=== PATIENT | female | born 1960 | race Caucasian/White ===

== ENCOUNTER 2022-08-05 13:05 | Outpatient (CLI) | payer OTHER, SELFPAY ==
--- NOTE | 2022-08-05 13:14 | MM_ITS ---
WS: [id number] BILATERAL 3D TOMOSYNTHESIS DIGITAL SCREENING MAMMOGRAPHY WITH CAD CLINICAL INFORMATION: SCREENING HISTORY: Screening mammogram. LEFT breast pain and soreness. Small amount of dark nipple discharge. COMPARISON: 2017 and August 2018 TECHNIQUE: Bilateral CC and MLO views. FINDINGS: The breasts are composed of heterogeneous fibroglandular density tissue, which can limit the detectio n of small underlying mass lesions. Incidental punctate and lucent centered calcifications. No suspic ious mass, asymmetry, calcifications, or architectural distortion. No evidence of malignancy. MM/[place] [id number] IMPRESSION: BI-RADS: 2-Benign FOLLOW UP: 1 Year Follow-up Recommend return to annual screening mammography.
== END 2022-08-05 13:06 | disposition home or self-care (01) ==
LOC: RAD 13:07
PROVIDERS: PCP Nurse Practitioner Family; Visit Provider Nurse Practitioner Family
DX: Z12.31 Encounter for screening mammogram for malignant neoplasm of breast (principal)
CPT/HCPCS: 77063; 77067

== ENCOUNTER 2023-12-19 11:04 | Outpatient (CLI) | payer OTHER, SELFPAY ==
--- NOTE | 2023-12-19 11:11 | MM_ITS ---
WS: [id number] BILATERAL 3D TOMOSYNTHESIS DIGITAL SCREENING MAMMOGRAPHY WITH CAD CLINICAL INFORMATION: SCREENING HISTORY: Screening mammogram. No current complaints. COMPARISON: 2021 TECHNIQUE: Bilateral CC and MLO views. FINDINGS: The breasts are composed of heterogeneous fibroglandular density tissue, which can limit the detectio n of small underlying mass lesions. No suspicious mass, asymmetry, calcifications, or architectural d istortion. No evidence of malignancy. Incidental punctate and lucent centered calcifications. IMPRESSION: MM/[place] [id number] BI-RADS: 2-Benign FOLLOW UP: 1 Year Follow-up Recommend return to annual screening mammography.
== END 2023-12-19 11:05 | disposition home or self-care (01) ==
PROVIDERS: PCP Nurse Practitioner Family; Visit Provider Nurse Practitioner Family
DX: Z12.31 Encounter for screening mammogram for malignant neoplasm of breast (principal)
CPT/HCPCS: 77063; 77067

== ENCOUNTER 2024-05-29 09:56 | Outpatient (CLI) | payer OTHER, SELFPAY ==
--- NOTE | 2024-05-29 10:02 | XR_ITS ---
WS: [id number] Exam: XR shoulder RT min 2V* [id number] Date/Time of Exam: 05/29/2024 10:08 AM Reason For Exam: PAIN IN R SHOULDER/STIFFNESS No fracture or dislocation. Moderate degenerative change at the AC joint. Mild glenohumeral joint DJD . Normal soft tissues. XR/XR shoulder RT min 2V* [id number] IMPRESSION: 1. Degenerative changes. No fracture or other significant finding.
== END 2024-05-29 09:57 | disposition home or self-care (01) ==
LOC: RAD 09:58
PROVIDERS: PCP Nurse Practitioner Family; Visit Provider Nurse Practitioner Family
DX: M19.011 Primary osteoarthritis, right shoulder (principal)
CPT/HCPCS: 73030

== ENCOUNTER → 2024-06-15 07:50 | Outpatient (BNVA) | payer OTHER, SELFPAY | PROVIDERS: PCP Nurse Practitioner Family; Visit Provider Physician Assistant | DX: M25.511 Pain in right shoulder (principal); M75.41 Impingement syndrome of right shoulder; R03.0 Elevated blood-pressure reading, without diagnosis of hypertension | CPT/HCPCS: 73030 ==

== ENCOUNTER 2024-06-22 15:47 | Outpatient (CLI) | payer OTHER, SELFPAY ==
--- NOTE | 2024-06-22 15:52 | MR_ITS ---
WS: [id number] MRI RIGHT SHOULDER HISTORY: SHOULDER PAIN COMPARISON: Radiograph 06/15/2024 TECHNIQUE: Multiplanar sequences of the shoulder joint are submitted. Moderate AC joint arthritis. Narrowing of the joint space and small osteophytes. Small amount of flui d in the subacromial bursa. Moderate subacromial impingement by 5 mm osteophyte. Normal position of t he biceps tendon in the bicipital groove. No os acromion. Marked tendinopathy and thickening of the distal supraspinatus tendon. There is a tiny focal fluid co llection at the site of the subacromial impingement which could be a focal tear from the bursal surfa ce. Normal subscapularis tendon. There is fluid in the subscapularis recess. Very mild atrophy of the supraspinatus muscle. Mild narrowing of the glenohumeral joint. Marrow edema in the posterior lateral humeral head. Avulsio n of the anterior labrum. MR/MR shoulder RT wo con* [id number] IMPRESSION: 1. Moderate AC joint arthritis with encroachment upon the supraspinatus muscle and tendon. 2. Moderate subacromial impingement upon the distal supraspinatus tendon. 3. Marked tendinopathy with thickening of the distal supraspinatus tendon but no full-thickness tear. Tiny bursal surface tear is suspected at the site of th e subacromial impingement. 4. Mild supraspinatus muscle atrophy. 5. Anterior labral tear.
== END 2024-06-22 15:48 | disposition home or self-care (01) ==
LOC: RAD 15:47
PROVIDERS: PCP Nurse Practitioner Family; Visit Provider Nurse Practitioner Family
DX: M19.011 Primary osteoarthritis, right shoulder (principal); M75.41 Impingement syndrome of right shoulder; M75.91 Shoulder lesion, unspecified, right shoulder; S43.431A Superior glenoid labrum lesion of right shoulder, initial encounter; X58.XXXA Exposure to other specified factors, initial encounter
CPT/HCPCS: 73221

== ENCOUNTER 2024-10-18 17:13 | Observation (INO) | payer MEDICARE, BC, SELFPAY ==
--- NOTE | 2024-10-17 11:13 | ANES.PREANE2 ---
Pre-Anesthetic Assessment Height/Weight: Height 5 ft 8 in Preop Diagnosis: Rotator cuff tear Operation Date: 10/18/24 09:20 Proposed Procedures p shoulder diagnostic and surgical arthroscopy(Right) - Lazarus Matias DO s AC Joint Resection(Right) - Lazarus OlsonattDO s Subacromial Decompression(Right) - Lazarus LenoirDO s rotator cuff debridement versus repair(Right) - Lazarus Polly DO s possible biceps tenotomy versus tenodesis(Right) - Lazarus Lenoir, DO s possible labral repair(Right) - Lazarus Polly, DO Was Beta Jeaneth taken within 24 hours: N/A Was Clonidine taken within 24 hours: N/A Social No alcohol and No tobacco Exam alert, oriented x 3, clear to auscultation bilaterally and regular rate & rhythm Airway Submandibular: within normal limits Cervical ROM: within normal limits Mallampati: Class III Dentition: full Anesthetic Plan ASA status: 2 Anesthesia: General and Regional (specify below) Other: No prior issues with anesthesia NPO since yesterday evening Patient has alpha gal, anesthesia team aware History of hypertension on amlodipine Denies any pulmonary issues Plan for general anesthetic with preop nerve block Medications/Allergies Home Medications ?Medication ?Instructions ?Recorded ?Confirmed ?Last Taken ?Type amlodipine 2.5 mg tablet 2.5 mg PO BID 06/15/24 10/15/24 10/18/24 History escitalopram oxalate 20 mg tablet 20 mg PO DAILY 10/15/24 10/15/24 10/17/24 History (Lexapro) Allergies Allergy/AdvReac Type Severity Reaction Status Date / Time Alpha-Gal Allergy ADR-Gastrointestinal Verified 10/18/24 07:06 (Wczojlvwx-Ehaby-3,3-Gala Upset [facility] Anesthesia Social History Smoking and tobacco/nicotine status: never used tobacco/nicotine Data Anesthesia Cardiac Studies: No Data to Display
[2024-10-18] VITALS (37 sets, daily range): BP systolic 103–165; BP diastolic 50–88; PULSE 70–104; RESP 14–28; TEMP 36.1–36.4; O2SAT 88–98; BMI 35.7; BMI 37.5
[2024-10-18] MEDS: sodium chloride 0.9% 1,000 ML 30 ML IV (07:10)
[2024-10-18] MEDS: acetaminophen 1,000 MG/100 ML PIGGYBACK 400 MG IV (07:10)
[2024-10-18] MEDS: ketorolac 30 mg/mL INJ IVP (07:11)
--- NOTE | 2024-10-18 07:22 | W.PM.OPSFHP ---
Same Day Surgery H&P Indication for Procedure/HPI DATE OF PROCEDURE: October 18, 2024 CHIEF COMPLAINT/INDICATIONFOR SURGICAL PROCEDURE: Right shoulder AC joint arthritis, rotator cuff impingement, biceps tendinitis, labral tear, rotator cuff tear PREOP DIAGNOSIS: Right shoulder AC joint arthritis, rotator cuff impingement, biceps tendini PLANNED PROCEDURE: Operation Date: 10/18/24 08:30 Proposed Procedures p shoulder diagnostic and surgical arthroscopy(Right) - Lazarus Polly, DO s AC Joint Resection(Right) - Lazarus Izard, DO s Subacromial Decompression(Right) - Lazarus Polly, DO s rotator cuff debridement versus repair(Right) - Lazarus Izard, DO s possible biceps tenotomy versus tenodesis(Right) - Lazarus Polly, DO s possible labral repair(Right) - Lazarus Polly, DO Medications/Allergies* Home Medications ?Medication ?Instructions ?Recorded ?Confirmed ?Type amlodipine 2.5 mg tablet 2.5 mg PO BID 06/15/24 10/15/24 History escitalopram oxalate 20 mg tablet 20 mg PO DAILY 10/15/24 10/15/24 History (Lexapro) Allergies/Adverse Reactions Allergy/AdvReac Type Severity Reaction Status Date / Time Alpha-Gal Allergy ADR-Gastrointestinal Verified 10/18/24 07:06 (Uvsifutnv-Pyklg-6,3-Gala Upset Current Medications: Generic Name Dose Route Start Last Admin Trade Name Freq PRN Reason Stop Dose Admin Sodium Chloride 1,000 mls @ 30 mls/hr 10/18/24 07:00 10/18/24 07:10 Sodium Chloride 0.9% IV 10/19/24 06:59 30 mls/hr .Q24H ERNESTINE Administration Pertinent History/Comorbid Conditions* Social History Smoking and tobacco/nicotine status: never used tobacco/nicotine Pertinent Exam Findings alert, oriented x 3, operative site marked and procedure specific exam findings Please refer to detailed orthopedic examination on 06/28/2024 listed below: Right Shoulder Exam: -ROM actively 160 degrees, passively 180 degrees -5/5 strength with ER -4+/5 strength with IR -TTP over bicipital groove, AC joint, anterior shoulder and upper border of trapezious -Jobes test-positive -Speed's Test-positive -O'Briens test-positive -Rodriges impingement-positive Recommendations Surgery/Procedure today Other Plans: Patient is here today for right shoulder diagnostic and surgical arthroscopy with AC joint resection, subacromial decompression, rotator cuff debridement versus repair, possible biceps tenotomy versus tenodesis, possible labral repair. Patient's failed conservative treatment originally was scheduled earlier however due to insurance issues and have to complete bouts of therapy she has underwent a full process at this point in time she is failed conservative treatment and is ready to proceed with surgical intervention she continues to have persistent pain and dysfunction of her right shoulder. We once again reviewed her procedure in detail as far as the ins and outs procedure the risk benefits complication alternatives surgery and through shared decision making patient elects proceed with surgical invention. All questions answered at this time. Will proceed with surgery today. Coding Level of Care Code Acute Code for Matildeg Fwd
--- NOTE | 2024-10-18 08:06 | ANES.PROC ---
Anesthesia Procedures Procedure/Date: 10/18/24 Nerve Block ^: Nerve Block 1: Main Anesthesia: other (100 mcg fentanyl and 2 mg Versed) Time Out Performed: Yes Consent: requested by attending/covering physician and from patient Nerve block location: interscalene Anesthesia monitors applied: pulse oximetry, EKG, BP cuff and oxygen Nerve block position: supine Anesthetic Used: ropivicaine 0.5% Amount of anesthesia used (mL): 30 Ultrasound used to: recognize landmarks Nerve Stimulator Used?: Yes Interscalene/Femoral BLK: other needle (pjunk 4inch) Injection: neg aspiration of heme Patient Tolerated Procedure: well Complications: none Additional Comments: Decadron 4 mg added to block
[2024-10-18] MEDS: ceFAZolin 2,000 MG in sodium chloride 0.9% (plus) 50 ML 100 MG IV (08:09)
[2024-10-18] MEDS: scopolamine 1 mg PATCH 1 PATCH TRANSDERMA (08:13)
[2024-10-18] MEDS: EPINEPHrine 1 mg/mL INJ 2 MG XX (09:29)
--- NOTE | 2024-10-18 10:03 | W.PM.BPON ---
Date of Procedure: [October 18, 2024] Surgeon: [Dr. 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 ]
--- NOTE | 2024-10-18 10:07 | PM.PACU ---
PACU note Narrative: Patient is a 64-year-old female just underwent a right shoulder diagnostic and surgical arthroscopy. Patient transferred to PACU in stable condition. Pain is well controlled. shoulder Dressing on , dry and in place. Patient's operative arm is in a shoulder immobilizer. Patient is awake and alert and able to respond to my questions accordingly. Patient's fingers are warm with good perfusion. Normal cap refill under 2 seconds. Radial pulse 2+. unable to assess further range of motion in arm due to sling. Patient can wiggle fingers. Sensation to hand intact. Exam: awake Disposition: discharged
[2024-10-18] MEDS: ipratropium-albuterol 3 mL Neb INHALATION ×3 (10:51→19:20)
--- NOTE | 2024-10-18 10:51 | PC.NURSE ---
1045 - Patient's 02 sat 88% on 6L NC - Dr. Thomas notified. Orders received for breathing treatment.
--- NOTE | 2024-10-18 13:32 | PM.MISC ---
Miscellaneous Note Purpose of Documentation: Orthopedic note update: Patient unfortunately in PACU during the recovery process continued to struggle with maintaining O2 saturations and requiring oxygen and once it has been removed she would desat. After talking with anesthesia they are recommending observation overnight I did talk with Dr. Stevens who agreed to consult for this patient I put in admission orders from orthopedic standpoint however will defer to the hospitalist team that we will manage her hypoxia patient per their recommendations will have a bed in the ICU this evening and they will work up for hypoxia. Orthopedics will continue to follow appreciate. I updated the patient as well as the family they understand and agree with current plan. All questions answered. Will see and evaluate tomorrow. Plan will be for nonweightbearing to the left upper extremity strict no active range of motion maintain sling at all times. Change dressing as needed. Pain control. Ice as needed. All questions answered at this time.
--- NOTE | 2024-10-18 14:08 | XR_ITS ---
WS: [id number] Exam: XR chest 1V portable [id number] Date/Time of Exam: 10/18/2024 2:12 PM Reason For Exam: new hypoxia No priors. The lungs are clear. Mild plaque atelectasis in the lower lung zones. Moderate elevation of the RIGHT diaphragm. Heart size is normal. The mediastinum is normal in contour. Soft tissue density superimposes the central and RIGHT heart that could represent a hiatal hernia. Bony structures are intact. Recommendations: A nonemergent detailed PA and lateral chest x-ray might be considered for follow-up. XR/XR chest 1V portable [id number] IMPRESSION: 1. Moderate elevation of the RIGHT diaphragm. No acute finding. 2. Soft tissue density superimposing the central and RIGHT heart that may repre sent a large hiatal hernia.
--- NOTE | 2024-10-18 14:11 | PM.CONSULT ---
Providers/Reason For Consult Consulting Physician/Specialty*: Cary Infante MD/ Hospitalist Reason for Consult*: hypoxia Requesting Physician: Dr. Matias/ Dr. Thomas Attending Physician: Lazarus Matias DO Primary Care Provider: MISSY Groves History of Present Illness History of Present Illness Neva Tan is a 64 year old female with PMH HTN, who presented today for an elective shoulder surgery. She underwent shoulder decompressive surgery earlier today with interscapular nerve block. Post operatively. she was noted to be hypoxic with 02 sat in 80s on RA. With 4lpm supplemental 02, 02 sat currently at 94%. She denies any chest pain. Denies any dyspnea. 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 She does not typically use 02 at home. Non smoker. No known h/o COPD or asthma. Approximately one month ago, she was diagnosed with an episode of ? bronchitis vs pneumonis. States that she was noted to have wheezing on her right chest and needed 5 days of abx and steroids. She was also prescribed an albuterol inhlaer by her PCP for prn use. No recent sick contacts. Denies any chest pain. No formal diagnosis of sleep apnea, but she suspects this as she snores. denies any known cardiac issues. Review of Systems General: Reports: 10 or more systems reviewed and unremarkable except in HPI and below Const: Denies: fever(s), chills or body aches Eyes: Denies: change in vision, blurry vision or photophobia ENMT: Reports: hoarseness; Denies: throat pain, enlarged tonsils, odynophagia or nasal congestion Card: Denies: chest pain, palpitations, irregular heart rhythm, edema, swelling of feet/ankles, lightheadedness, pre-syncope, dyspnea on exertion or orthopnea Resp: Denies: dyspnea, productive cough, non-productive cough, wheezing, stridor, pain on inspiration, change in phlegm color, hemoptysis or chest congestion GI: Denies: abdominal pain, nausea, vomiting, hematemesis, coffee ground emesis, dysphagia, heartburn, diarrhea, constipation, GI cramping, change in stool character, hematochezia or melena : Denies: flank pain, difficulty voiding, dysuria, urinary frequency, urinary urgency, urinary hesitancy or hematuria Musc: Denies: neck pain, back pain, extremity pain, joint swelling, joint warmth or deformity Neuro: Denies: headache(s), numbness in extremities, weakness in extremities, sensory changes, difficulty walking, frequent falls, dizziness, vertigo, behavioral changes, Slurred speech present or seizure-like activity Psych: Denies: anxiety, depression, suicidal ideation or homicidal ideation Endo: Denies: polyuria, polydipsia, tired all the time, cold intolerance or hot flashes Ashu/Lymph: Denies: easy bruising or easy bleeding Medications/Allergies Home Medications ?Medication ?Instructions ?Recorded ?Confirmed ?Last Taken ?Type amlodipine 2.5 mg tablet 2.5 mg PO BID 06/15/24 10/15/24 10/18/24 History escitalopram oxalate 20 mg tablet 20 mg PO DAILY 10/15/24 10/15/24 10/17/24 History (Lexapro) hydrocodone 7.5 mg-acetaminophen 1 tab PO Q6H PRN pain #20 tabs 10/18/24 Unknown Rx 325 mg tablet ondansetron 4 mg disintegrating 4 mg PO Q8H PRN nausea and 10/18/24 Unknown Rx tablet vomiting 3 days #9 tabs Allergies Allergy/AdvReac Type Severity Reaction Status Date / Time Alpha-Gal Allergy ADR-Gastrointestinal Verified 10/18/24 07:06 (Fefuzpyll-Cjvfe-8,3-Gala Upset Current Medications Generic Name Dose Route Start Last Admin Trade Name Freq PRN Reason Stop Dose Admin Sodium Chloride 1,000 mls @ 30 mls/hr 10/18/24 07:00 10/18/24 07:10 Sodium Chloride 0.9% IV 10/19/24 06:59 30 mls/hr .Q24H ERNESTINE Administration PFSH Acute PFSH: Social History Smoking and tobacco/nicotine status: never used tobacco/nicotine Vitals/I&O/Wt Last Vital Signs Temp 97.4 F L 10/18/24 11:55 Pulse 92 10/18/24 13:27 Resp 18 10/18/24 13:27 BP 117/70 10/18/24 13:27 Pulse Ox 89 L 10/18/24 13:27 O2 Del Method Nasal Cannula 10/18/24 13:27 O2 Flow Rate 4 10/18/24 13:27 10/17/24 10/18/24 10/18/24 22:59 06:59 14:59 Intake Total 150 / 150 Output Total 2 / 2 Balance 148 / 148 Weight last 48 hrs Weight 106.594 kg Physical Exam Narrative: General: No acute distress, AO x3 HEENT: PERRLA, pupils bilaterally equal and reactive, pallors not present Chest: Wheezing to auscultation B/L more pronounced on the right side CVS: S1-S2 regular, no murmurs, no tachycardia, no gallops, no rubs Abdomen: Soft, nontender, no organomegaly, bowel sounds present Neuro: No focal deficits, no facial deformity, AO x3, power 5/5 in all limbs Extremities: Right arm with orthopedic sling in plac e Data 10/18/24 16:55 10/18/24 16:55 A&P Assessment and plan (1) Hypoxia: (2) Reactive airway disease: Plan 64F without known lung or cardiac abnormalities underwent elevtive shoulder surgery, post op noted to have hypoxia with 02 sat in the 80s, needing 4lpm supplemental 02. There is B/L wheezing on exam, more pronounced on the right side Differentials include reactive airway disease, viral bronchitis, possible asthma or COPD Check CXR now Obtain CBC, CMP, D dimer, Ekg and troponin series now duoneb inhalation q6h scheduled dexamthesone 4mg IVP now Further plan to be dependedn ton results of above testing PDMP PDMP Reviewed: Not Reviewed Coding Level of Care Code Acute Code for Chg Fwd Diagnoses Hypoxia R09.02 Reactive airway disease J45.909
--- NOTE | 2024-10-18 14:37 | SUR.PHASEII ---
patient received from pacu with nasal cannula on 4L. o2 sat between 88-91%. patient was instructed on how to use an incentive spirometer. patient completed 3 rounds of the incentive spirometer. o2 sat steady at 91% with 4L. anesthesia monitoring and recommended consult with surgeon and hospitalist about being admitted. cxr, ekg and duoneb ordered and completed in ops.
--- NOTE | 2024-10-18 14:41 | ECG_ITS ---
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 Measurements Intervals [place] Rate: 86 P: 19 IA: 185 QRS: -22 QRSD: 106 T: 5 QT: 370 QTc: 443 Interpretive Statements SINUS RHYTHM BORDERLINE LEFT AXIS DEVIATION [QRS AXIS < -20] MINIMAL VOLTAGE CRITERIA FOR LVH, CONSIDER NORMAL VARIANT [MEETS CRITERIA IN ONE OF: R(aVL), S(V1), R(V5), R(V5/V6)+S(V1)] NONSPECIFIC T-WAVE ABNORMALITY No previous ECG available for comparison Electronically Signed On 10-18-2024 17:49:57 EXAMINATION SCORER by Darell Hill M.D. [email or web address]
--- NOTE | 2024-10-18 14:55 | SUR.PHASEII ---
Received report from Madina DAWN taking care of patient, assumed care at this time. Patient is being admitted overnight due to oxygen levels dropping below acceptable level. Patient is being held in OPS awaiting a room assignment.
--- NOTE | 2024-10-18 15:03 | ANE.PACU2 ---
Inpatient post-anesthesia follow up: Airway intact: Yes Vital signs: Temperature 97.4 F Pulse Rate 88 Respiratory Rate 14 Blood Pressure 117/70 Pulse Oximetry 95 Oxygen Delivery Me thod Nasal Cannula Oxygen Flow Rate 4 Fraction of Inspir ed Oxygen Hydration adequate: Yes Nausea and vomiting: No Pain level: 1 Mental status: Baseline Additional Comments: Patient experiencing hypoxemia postop. Requiring 3-4 L O2 supplementation to maintain SpO2 greater than 90%. DuoNebs given. Incentive spirometry has been performed. Patient was watched approximately 2 hours in recovery prior to deciding for admission. Chest x-ray showing a right elevated hemidiaphragm which is an expected finding following interscalene nerve block. Mild atelectasis noted. Surgeon is aware and plans for admission for further observation
--- NOTE | 2024-10-18 15:46 | SUR.PHASEII ---
Patient received a breathing treatment from RT staff and her O2 sats having improved some.
--- NOTE | 2024-10-18 16:34 | ECG_ITS ---
[facility] [employer] 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
--- NOTE | 2024-10-18 16:38 | ECG_ITS ---
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
--- NOTE | 2024-10-18 16:38 | ECG_ITS ---
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
[2024-10-18 17:33] LABS: Basophils % 0.1 %; Eosinophils % 0.3 %; Hematocrit 38.2 % (36-47); Lymphocytes # 0.6 10^3/uL (0.8-4.8); Lymphocytes % 4.4 %; Mean Corpuscular HGB Conc 30.6 g/dL (30-55); Mean Corpuscular Hemoglobin 26.5 pg (27-33); Mean Corpuscular Volume 86.4 fl (85-98); Mean Platelet Volume 8.8 fL (7.4-10.4); Monocytes # 0.2 10^3/uL (0.2-0.9); Monocytes % 1.1 %; Neutrophils # 12.67 10^3/uL (1.8-7.7); Neutrophils % 93.4 %; Nucleated Red Blood Cells % 0 %; Platelet Count 354 10^3/cmm (157-399); Red Blood Count 4.42 10^6/uL (3.85-5.65); White Blood Count 13.57 10^3/uL (3.29-11.43)
[2024-10-18 17:46] LABS: D Dimer 0.83 ug/mLFEU (0-0.59)
[2024-10-18 17:49] LABS: Troponin(5th) Baseline < 6 ng/L (0-10)
[2024-10-18 17:57] LABS: Alanine Aminotransferase 24 U/L (0-33); Albumin Level 4.2 g/dL (3.5-5.2); Alkaline Phosphatase 71 U/L (35-105); Aspartate Amino Transferase 23 U/L (0-32); Blood Urea Nitrogen 11 mg/dL (8-23); Calcium 8.6 mg/dL (8.5-10.5); Carbon Dioxide 20 mmol/L (22-29); Chloride 104 mmol/L (98-107); Creatinine Clr Calc Pharmacy 89.6236; Globulin 2.3 g/dL (1.3-4.6); Glucose 228 mg/dL (65-115); NT Pro B Type Natriuretic Pept < 36 pg/mL (0-125); Osmolality Calculated 295 mOsm/kg (285-295); Sodium 139 mmol/L (136-145); Total Bilirubin 0.2 mg/dL (0.15-1.2); Total Protein 6.5 g/dL (6.6-8.7)
--- NOTE | 2024-10-18 18:00 | P.OP_ITS ---
Operative Report Date of procedure: October 18, 2024 Surgeon: Lazarus Matias DO Data Base Administrator: Dav Matais PA-C: PA was necessary for assistance in this case with shoulder positioning to execute the procedure, assistance with instrumentation, as well as implant fixation when necessary, assist with wound closure and dressing application. 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 Procedure done: Right?shoulder?diagnostic and surgical arthroscopy with arthroscopic rotator cuff repair(small) Right?shoulder?diagnostic and surgical arthroscopy biceps tenodesis Right?shoulder?diagnostic and surgical arthroscopy labral debridement Right?shoulder?diagnostic and surgical arthroscopy acromioclavicular joint resection Right?shoulder?diagnostic and surgical arthroscopy subacromial decompression (acromioplasty and bursectomy) Right shoulder diagnostic and surgical arthroscopy with glenohumeral joint chondroplasty Surgeon: Lazarus Matias DO Estimated blood loss: 10mL IV fluids: See anesthesia record Implants: Bicep tenodesis loop and tack kit Arthrex Arthrex 4.75 swivel lock Arthrex scorpion and suture tape Complications: None Condition: stable Disposition: same day Brief History: Patient been seen and worked up in the outpatient setting for?right?shoulder?p ain.? Pt had an MRI which showed findings below.? Patient's failed conservative treatment and has weakness.? We talked about treatment options far as nonoperative and operative intervention..? We talked about risk benefits complication alternatives surgical nonsurgical treatment options.? Understanding risk of surgery pt agrees to proceed with surgical intervention.? All questions have been answered at this time.? Patient elects proceed with surgery and consent obtained in preop for right shoulder diagnostic and surgical arthroscopy with AC joint resection, subacromial decompression, rotator cuff debridement versus repair, possible biceps tenotomy versus tenodesis, possible labral repair. MR/MR shoulder RT wo con* [id number] IMPRESSION: 1. Moderate AC joint arthritis with encroachment upon the supraspinatus muscle and tendon. 2. Moderate subacromial impingement upon the distal supraspinatus tendon. 3. Marked tendinopathy with thickening of the distal supraspinatus tendon but no full-thickness tear. Tiny bursal surface tear is suspected at the site of the subacromial impingement. 4. Mild supraspinatus muscle atrophy. 5. Anterior labral tear. Procedure: Patient seen evaluated in the preoperative holding area.? Consent reviewed and signed with patient.? Once again reviewed patient's MRI results as well as? planned surgical intervention.? Correct extremity marked.? Patient seen evaluated by anesthesia department received regional anesthesia.? Once ready for surgery was taken back to the operative suite.? Patient then subsequently underwent anesthesia per the anesthesia department was transported onto the OR table.? Patient was then placed into a lateral decubitus position with a beanbag and was appropriately secured to the bed.? All bony prominences well-padded.? Patient then had the?right?upper extremity was then prepped and draped in standard orthopedic fashion.? Patient received appropriate preoperative antibiotics.? Final timeout performed. The?right?upper extremity was then held in hanging from traction utilizing sterile technique.? Next started with standard diagnostic and surgical arthroscopy with posterior portal position introduced arthroscope into the glenohumeral joint.? Visualized the glenohumeral joint I then introduced a spinal needle within the rotator cuff interval to confirm appropriate anterior portal placement.? Once this was confirmed I then made my small incision and then introduced my arthroscopic shaver into the glenohumeral joint.? After flushing the joint fluid, was clearly evident patient had biceps tendon tearing as well as Superior labral tear. Patient had appreciable unstable biceps anchor most pronounced in the superior labrum. Given there appears to be healthy intra-articular tendon plan was for an intra-articular biceps tenodesis at the superior portion as it enters the intertubercular groove. Thermal wand introduced into the rotator interval. I then release of the rotator interval to have appropriate visualization and the ability to perform biceps tenodesis. At this point I established a purple passport cannula which was introduced. Next I performed an Arthrex loop and tap biceps tenodesis. Passer was then made around the tendon luggage tag stitch around and then thru the tendon and around twice I then utilized a thermal wand to release the biceps tendon at the anchor to perform with tenotomy. I then loaded with suture onto an Arthrex 4.75 swivel lock suture anchor. A punch was then placed in appropriate position at the entry point into the intertubercular groove just superior to the subscapularis tendon. Punch was then introduced to the appropriate depth. The suture loaded on the swivel lock was then advanced held under appropriate tension and shoulder lock anchor was then advanced and had excellent fixation. Excess suture was then cut biceps tenodesis was complete. I then utilized a thermal wand to seal the edges of the superior labrum. Next I evaluated the subscapularis tendon which was intact and no evidence of tear. ?Next there was significant labral tearing at biceps anchor and circumfere ntial.? ? I then subsequently utilized a a arthroscopic shaver and thermal wand to perform a labral debridement.? This point time I then visualized the glenohumeral joint.? The glenohumeral joint was found to have grade 2-3 chondromalacia throughout.? This point in time there was some unstable articular cartilage in the glenohumeral joint utilized up arthroscopic shaver and thermal wand to perform glenohumeral joint chondroplasty to stable articular tissue. Axillary pouch was free of loose bodies from viewing the posterior portal.? Next a visualized the rotator cuff superiorly and there was found to be a small undersurface tearing of the supraspinatus tendon.? I utilized a spinal needle to jose this location.?? This completed my work within the glenohumeral joint all fluid was suctioned free of the joint.? ?Next I reintroduced the arthroscope posteriorly.? And went to the subacromial space.? I established my lateral working portal at the site of which my spinal needle was marking of the rotator cuff tear.? Thermal wand was then introduced laterally and then I subsequently performed extensive bursectomy of the subacromial space.? Patient had a large anterior bone spur.? At this point time I proceeded with my AC joint resection thermal wand was used and track to the anterior edge of the acromion and then tracked all the way to the AC joint.? Once identified the AC joint this was very arthritic in nature.? Thermal wand was placed anteriorly to establish appropriate plane for AC joint resection.? Once appropriate margins and anterior inferior and anterior capsule was released I then introduced arthroscopic shaver and a bur and performed AC joint resection of both the acromion to cope plane at the AC joint and a distal clavicle resection was then performed totaling 1 cm in size and was confirmed.? This completed my AC joint resection and I then introduced the arthroscopic shaver laterally while continuing to view posteriorly.? I then performed an acromioplasty to complete my subacromial decompression prior to fixing the rotator cuff tear.? Next the arthroscopic shaver was then used previous spinal needle spot that is marked the small hole in the rotator cuff this was consistent with a small full- thickness tear.? Given the small size this did not need a medial and lateral row configuration as result my plan was for a horizontal mattress stitch with a single lateral row anchor.? As result I loaded and Arthrex scorpion with fiber tape and subsequently.? A horizontal mattress purchase appropriately spaced to the small tear of the supraspinatus tendon.? At this point in time and then introduced a shaver to debride the rotator cuff footprint and decorticate the footprint in preparation for repair, next I marked by swivel lock position.? Fiber tape was then loaded into a 4.75 swivel lock I then subsequently punched and then subsequently placement 4.75 swivel lock while maintaining appropriate tension and repair of rotator cuff and this was advanced with excellent fixation I then had a final confirmation of appropriate repair of the supraspinatus rotator cuff tendon tear.? Sutures were then cut with an arthroscopic suture cutter and subsequently evaluated the rotator cuff repair.? Repair was found to be satisfactory?shoulder?was taken through range of motion and the repair moved as a unit with no evidence of loss of fixation. ?I then switched the arthroscope to the lateral portal to confirm this tension- free repair.? I took the?shoulder?through range of motion and the rotator cuff repair was stable and moved as a unit. ?Next I then introduced the arthroscopic shaver posteriorly to complete my subacromial decompression appropriate complaining all the way up to the lateral edge of the acromion.? This completed the surgery.? All fluid was suctioned from the?shoulder.? All instruments were removed.? The lateral incision was then closed with nylon stitches.? As well as the portal sites closed with portal nylon stitches.? Xeroform 4 x 4's ABD and tape was then applied to the?right?shoulder?and was placed into a?shoulder?abduction pillow sling for rotator cuff repair.? Patient was then awakened from anesthesia and then taken back to PACU in stable condition.? Patient tolerated procedure without any issues. Disposition: Patient taken back in stable condition recovering well.? Dressings on in place clean dry and intact.? Will be nonweightbearing to the?right?upper extremity.? Follow rotator cuff repair protocol.? Patient to follow-up with me in the office in 2 weeks.? Patient will receive appropriate discharge instruction as well as pain medication postoperatively.? All questions answered.? We will contact the office for any questions or concerns.
[2024-10-18 19:22] LABS: Adenovirus Not Detected (NOT DETECT); Chlamydia Pneumoniae Not Detected (NOT DETECT); Coronavirus 229E,HKU1,NL63,OC4 Not Detected (NOT DETECT); Human Metapneumovirus Not Detected (NOT DETECT); Human Rhinovirus/Enterovirus Not Detected (NOT DETECT); Influenza A Not Detected (NOT DETECT); Influenza A H1 Not Detected (NOT DETECT); Influenza A H1-2009 Not Detected (NOT DETECT); Influenza A H3 Not Detected (NOT DETECT); Influenza B Not Detected (NOT DETECT); Mycoplasma Pneumoniae Not Detected (NOT DETECT); Parainfluenza Virus Type 1 Not Detected (NOT DETECT); Parainfluenza Virus Type 2 Not Detected (NOT DETECT); Parainfluenza Virus Type 3 Not Detected (NOT DETECT); Parainfluenza Virus Type 4 Not Detected (NOT DETECT); Respiratory Syncytial Virus A Not Detected (NOT DETECT); Respiratory Syncytial Virus B Not Detected (NOT DETECT); SARS-COV-2 Not Detected (NOT DETECT)
[2024-10-18 19:33] LABS: ABG PCO2 46.7 mmHg (35-45); ABG PH Result 7.31 (7.35-7.45); Blood Gas Sample Site Brachial, left; Blood Gas Sample Type Arterial; HCO3 ABG 23.4 mmol/L (22-26); Oxygen Device NC; PO2 ABG 88.3 mmHg (80.0-100.0)
[2024-10-18] MEDS: pantoprazole DR 40 mg Tablet PO (19:59)
[2024-10-18] MEDS: amlodipine 5 mg Tablet 2.5 MG PO (19:59)
--- NOTE | 2024-10-18 20:00 | ECG_ITS ---
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: : 1960 Requested By: Cary Infante Order Number: [id number] Reading MD: RADAMES VALLES Measurements Intervals [place] Rate: 91 P: 34 CT: 175 QRS: -17 QRSD: 98 T: 7 QT: 362 QTc: 445 Interpretive Statements SINUS RHYTHM MINIMAL VOLTAGE CRITERIA FOR LVH, CONSIDER NORMAL VARIANT [MEETS CRITERIA IN ONE OF: R(aVL), S(V1), R(V5), R(V5/V6)+S(V1)] NONSPECIFIC ST ELEVATION [0.05+ mV ST ELEVATION] Compared to ECG 10/18/2024 18:06:23 ST (T wave) deviation now present T-wave abnormality no longer present Electronically Signed On 10-23-2024 23:54:06 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
[2024-10-18] MEDS: HYDROcodone-acetaminophen 5-325 mg Tablet PO (20:01)
[2024-10-18] MEDS: dexamethasone 10 mg/mL INJ 6 MG IVP (20:01)
[2024-10-18 20:42] LABS: Troponin 5 2HR Delta 0.00001 ABS# (0-10)
[2024-10-18 23:52] LABS: Troponin 5 6HR Delta 0.00001 ng/L (0-12)
[2024-10-19] VITALS (10 sets, daily range): BP systolic 111–136; BP diastolic 58–72; PULSE 77–93; RESP 15–18; TEMP 36.6–36.9; O2SAT 92–97
[2024-10-19] MEDS: HYDROcodone-acetaminophen 5-325 mg Tablet PO ×2 (00:10→09:29)
[2024-10-19] MEDS: ipratropium-albuterol 3 mL Neb INHALATION ×2 (02:33→08:35)
[2024-10-19] MEDS: escitalopram 10 mg Tablet 20 MG PO (09:27)
[2024-10-19] MEDS: pantoprazole DR 40 mg Tablet PO (09:28)
[2024-10-19] MEDS: amlodipine 5 mg Tablet 2.5 MG PO (09:28)
--- NOTE | 2024-10-19 10:43 | PM.DCS ---
Discharge Providers Date of Admission: 10/18/24 17:13 Date of Discharge: October 19, 2024 Attending Provider at Admission: Cary Infante MD Attending Provider at Discharge: Lazarus Matias, DO Consults: Dr. Infante?hospitalist Primary Care Provider: MISSY Groves Diagnoses at Discharge Discharge Diagnosis (1) Hypoxia: Status: Resolved (2) Reactive airway disease: Status: Acute Reason for Visit Reason for Visit: M75.21 Brief History: Status post right shoulder arthroscopy and having postoperative hypoxia requiring hospitalization Hospital Course Hospital Course Patient is a pleasant 64-year-old female who presented to the outpatient surgery department with plan for a right shoulder diagnostic and surgical arthroscopy. Patient was seen evaluated by anesthesia once cleared for surgery was taken back to the operative suite patient did have a preoperative block to the right upper extremity. Patient then subsequently underwent anesthesia per the anesthesia department once properly anesthetized patient then subsequently underwent the right shoulder arthroscopy procedure refer to operative note for details. Patient underwent procedure as planned without issues or complications taken back to PACU in stable condition unfortunately during her recovery process she continued to be hypoxic and required O2 to maintain appropriate saturations. This point in time the anesthesiologist recommended hospitalization which we then subsequently contacted and consulted the internal medicine department and Dr. Infante was on board and managed medically. Orthopedics and subsequently had patient admitted she was then treated for her hypoxia and supportive care please refer to hospitalist consultation note and daily progress notes for details she was determined on postoperative day 1 to have resolved and was able to ambulate around on room air and maintain her O2 saturations it was determined on postop day 1 she was stable for discharge from orthopedic standpoint as well as internal medicine standpoint. She receive appropriate discharge instructions as well as pain medication postoperatively. She will maintain sling. She maintain appropriate restrictions being nonweightbearing to the right upper extremity and maintain sling. Patient understands agrees to current plan. Questions answered. Will discharge home and will follow-up in 2 weeks. Patient understands agrees to current plan. All questions answered. Physical Exam Narrative: Right shoulder examination: Examination of right shoulder demonstrates dressing on place clean dry intact no evidence of saturation slings on in place patient's block is starting to wear off returning of sensation as well as wiggling her fingers. Right upper extremity warm well-perfused. Discharge Data Studies Completed and Pending Completed Studies During Hospitalization Category Date Time Status CXRP [XR chest 1V portable [id number]] Stat Exams 10/18/24 14:08 Completed Pending at discharge Category Date Time Status ES surgery / GI images Routine Exams 10/18/24 06:35 Taken Radiology Impressions Chest X-Ray 10/18/24 14:08 IMPRESSION: 1. Moderate elevation of the RIGHT diaphragm. No acute finding. 2. Soft tissue density superimposing the central and RIGHT heart that may represent a large hiatal hernia. Laboratory Results WBC 13.57 10^3/uL (3.29-11.43) H 10/18/24 16:55 RBC 4.42 10^6/uL (3.85-5.65) 10/18/24 16:55 Hgb 11.70 g/dL (11.27-16.99) 10/18/24 16:55 Hct 38.2 % (36-47) 10/18/24 16:55 MCV 86.4 fl (85-98) 10/18/24 16:55 MCH 26.5 pg (27-33) L 10/18/24 16:55 MCHC 30.6 g/dL (30-55) 10/18/24 16:55 RDW 15.0 % (12.1-15.1) 10/18/24 16:55 Plt Count 354 10^3/cmm (157-399) 10/18/24 16:55 MPV 8.8 fL (7.4-10.4) 10/18/24 16:55 Neut % (Auto) 93.4 % 10/18/24 16:55 Lymph % (Auto) 4.4 % 10/18/24 16:55 [place] % (Auto) 1.1 % 10/18/24 16:55 Eos % (Auto) 0.3 % 10/18/24 16:55 Baso % (Auto) 0.1 % 10/18/24 16:55 Neut # (Auto) 12.67 10^3/uL (1.8-7.7) H 10/18/24 16:55 Lymph # (Auto) 0.6 10^3/uL (0.8-4.8) L 10/18/24 16:55 [place] # (Auto) 0.2 10^3/uL (0.2-0.9) 10/18/24 16:55 Eos # (Auto) 0.0 10^3/uL (0.0-0.8) 10/18/24 16:55 Baso # (Auto) 0.0 10^3/uL (0.0-0.1) 10/18/24 16:55 Nucleated RBC % (auto) 0 % 10/18/24 16:55 Nucleated RBCs # 0.0 /100WBC 10/18/24 16:55 D-Dimer 0.83 ug/mLFEU (0-0.59) H 10/18/24 16:55 Specimen Type Arterial 10/18/24 19:20 Sample Site Brachial, left 10/18/24 19:20 ABG pH 7.31 (7.35-7.45) L 10/18/24 19:20 ABG pCO2 46.7 mmHg (35-45) H 10/18/24 19:20 ABG pO2 88.3 mmHg (80.0-100.0) 10/18/24 19:20 ABG HCO3 23.4 mmol/L (22-26) 10/18/24 19:20 ABG Base Excess -3.0 mmol/L (-2.0-2.0) L 10/18/24 19:20 Jesse Test N/a 10/18/24 19:20 Hematocrit 37.0 % (37-47) 10/18/24 19:20 O2 Delivery Device Nc 10/18/24 19:20 O2 Liters/Min 3.0 % 10/18/24 19:20 Market Basket Maker ID [email or web address] 10/18/24 19:20 Sodium 139 mmol/L (136-145) 10/18/24 16:55 Potassium 4.0 mmol/L (3.5-5.1) 10/18/24 16:55 Chloride 104 mmol/L (98-107) 10/18/24 16:55 Carbon Dioxide 20 mmol/L (22-29) L 10/18/24 16:55 Anion Gap 19.0 (5-19) 10/18/24 16:55 BUN 11 mg/dL (8-23) 10/18/24 16:55 Creatinine 0.8 mg/dL (0.5-0.9) 10/18/24 16:55 GFR Calculation 72.0 mL/min (90-130) L 10/18/24 16:55 Glucose 228 mg/dL (65-115) H 10/18/24 16:55 Calculated Osmolality 295 mOsm/kg (285-295) 10/18/24 16:55 Calcium 8.6 mg/dL (8.5-10.5) 10/18/24 16:55 Total Bilirubin 0.2 mg/dL (0.15-1.2) 10/18/24 16:55 AST 23 U/L (0-32) 10/18/24 16:55 ALT 24 U/L (0-33) 10/18/24 16:55 Alkaline Phosphatase 71 U/L (35-105) 10/18/24 16:55 Troponin T Baseline < 6 ng/L (0-10) 10/18/24 16:55 Troponin T 120 Minute 6.00 ng/L (0-10) 10/18/24 19:54 Delta Troponin T 0.19124 ABS# (0-10) 10/18/24 19:54 Troponin T Hi Sens 6Hr 6.00 ng/L (0-10) 10/18/24 23:17 Troponin T Hi Sens 6Hr Delta 0.97219 ng/L (0-12) 10/18/24 23:17 NT-Pro-B Natriuret Pep < 36 pg/mL (0-125) 10/18/24 16:55 Total Protein 6.5 g/dL (6.6-8.7) L 10/18/24 16:55 Albumin 4.2 g/dL (3.5-5.2) 10/18/24 16:55 Globulin 2.3 g/dL (1.3-4.6) 10/18/24 16:55 Adenovirus (PCR) Not detected (NOT DETECT) 10/18/24 16:50 C. pneumoniae DNA (PCR) Not detected (NOT DETECT) 10/18/24 16:50 Coronavirus 229E (PCR) Not detected (NOT DETECT) 10/18/24 16:50 Human Metapneumovir PCR Not detected (NOT DETECT) 10/18/24 16:50 Influenza A (H1) PCR Not detected (NOT DETECT) 10/18/24 16:50 Influ A (H1/09) PCR Not detected (NOT DETECT) 10/18/24 16:50 Influenza A (H3) PCR Not detected (NOT DETECT) 10/18/24 16:50 Influenza Type A (PCR) Not detected (NOT DETECT) 10/18/24 16:50 Influenza Type B (PCR) Not detected (NOT DETECT) 10/18/24 16:50 M. pneumoniae (PCR) Not detected (NOT DETECT) 10/18/24 16:50 Parainfluenza 1 (PCR) Not detected (NOT DETECT) 10/18/24 16:50 Parainfluenza 2 (PCR) Not detected (NOT DETECT) 10/18/24 16:50 Parainfluenza 3 (PCR) Not detected (NOT DETECT) 10/18/24 16:50 Parainfluenza 4 (PCR) Not detected (NOT DETECT) 10/18/24 16:50 RSV Type A (PCR) Not detected (NOT DETECT) 10/18/24 16:50 RSV Type B (PCR) Not detected (NOT DETECT) 10/18/24 16:50 Entero/Rhino (PCR) Not detected (NOT DETECT) 10/18/24 16:50 SARS-CoV-2 (PCR) Not detected (NOT DETECT) 10/18/24 16:50 Vitals Last Vital Signs Temp 98.4 F 10/19/24 07:21 Pulse 88 10/19/24 08:47 Resp 18 10/19/24 08:37 BP 136/70 10/19/24 07:21 Pulse Ox 94 10/19/24 10:21 O2 Del Method Room Air 10/19/24 08:37 O2 Flow Rate 2 10/19/24 07:21 Discharge Plan Discharge Patient Disposition: Home Condition: Stable Prescriptions: New hydrocodone-acetaminophen 7.5-325 mg tablet 1 tab PO Q6H PRN (Reason: pain) Qty: 20 0RF Continued amlodipine 2.5 mg tablet 2.5 mg PO BID escitalopram oxalate [Lexapro] 20 mg Tablet 20 mg PO DAILY Discharge Orders: Discharge Order (Routine); Ordered 10/19/24 Ordered By: Lazarus Matias Referrals: Lazarus Matias DO [Physician] - 10/30/24 2:45 pm Parmar,MISSY Saleem [Primary Care Provider] - 10/22/24 9:30 am Discharge Diet: Regular Discharge Activity: Limit activity as instructed Patient Instructions: Acute Wound Care (DC), Post Anesthesia Care Activity Restrictions/Additional Instructions: Orthopedic discharge instructions: Keep arm in shoulder sling and limit activity for the next 2 weeks until your follow-up appointment. To prevent frozen shoulder you can take arm out of sling and let it hang down and do pendulum swings. No weight-bearing to the operative extremity and no active or passive range of motion to operative extremity as well. Ice and elevate as needed for pain and swelling Take pain medication as prescribed Take antinausea medication as needed May supplement for pain with ibuprofen [id number] as needed Patient should leave dressing on in place for 72 hours, at that time may remove all dressings leave sutures in place may rinse incisions with warm soapy water pat dry and redress with dry dressing. No baths or soaks Follow-up in the orthopedic office in 2 weeks Contact the office for any questions or concerns Discharge Attestations Time Spent in Discharge Care*: less than 30 min Quality Metrics Clinical Quality Measures [ No reported AMI, CVA or VTE this stay] Coding Level of Care Code Acute Code for Chg Fwd Diagnoses Hypoxia R09.02 Reactive airway disease J45.909
--- NOTE | 2024-10-19 17:02 | P.PN_ITS ---
Subjective 2 Subjective: Patient is improved today. She is saturating 97% on room air. Home oxygen evaluation was completed which showed oxygen saturation of 94% on ambulation. No new complaints today. Her wheezing has resolved. Medications: Reviewed: Yes Vitals/I&O/Wt Last Vital Signs Temp 98.2 F 10/19/24 12:25 Pulse 77 10/19/24 12:25 Resp 15 10/19/24 12:25 BP 120/72 10/19/24 12:25 Pulse Ox 94 10/19/24 12:25 O2 Del Method Room Air 10/19/24 11:34 O2 Flow Rate 2 10/19/24 07:21 10/19/24 10/19/24 10/19/24 06:59 14:59 22:59 Intake Total 0 / 1033.5 240 / 240 Balance 0 / 1031.5 240 / 240 Weight last 48 hrs Weight 56.109 kg Weight 111.856 kg Weight 106.594 kg Physical Exam 2 Narrative: General: No acute distress, AO x3 HEENT: PERRLA, pupils bilaterally equal and reactive, pallors not present Chest: Clear to auscultation bilaterally CVS: S1-S2 regular, no murmurs, no tachycardia, no gallops, no rubs Abdomen: Soft, nontender, no organomegaly, bowel sounds present Neuro: No focal deficits, no facial deformity, AO x3, power 5/5 in all limbs Extremities: Right arm with orthopedic sling in plac e Data 10/18/24 16:55 10/18/24 16:55 A&P Assessment and plan (1) Hypoxia: (2) Reactive airway disease: Plan 64F without known lung or cardiac abnormalities underwent elevtive shoulder surgery, post op noted to have hypoxia with 02 sat in the 80s, needing 4lpm supplemental 02. There is B/L wheezing on exam, more pronounced on the right side Differentials include reactive airway disease, viral bronchitis, possible asthma or COPD Check CXR now Obtain CBC, CMP, D dimer, Ekg and troponin series now duoneb inhalation q6h scheduled dexamthesone 4mg IVP now Further plan to be dependedn ton results of above testing October 19, 2024. Patient is much improved today. She is on room air. Home O2 evaluation was completed, patient saturating 94% with ambulation. Wheezing has resolved. Chest x-ray showed moderate elevation of the right diaphragm, soft tissue density superimposing the central and right heart that may represent a large hiatal hernia. Patient is recommended to follow-up with primary care physician, may need CT chest for further characterization. D-dimer age-appropriate at 0.83. EKG and troponin series negative for any concern for acute coronary syndrome. Overall clinical impression is that of reactive airway disease, likely triggered by postop state, Patient is clinically much improved today and stable from discharge from a medicine standpoint. Encourage follow-up with primary care physician. Encouraged to use albuterol inhaler that she has been previously prescribed every 6 hours at home the next 2 to 3 days. No further steroids indicated at this time given quick clinical improvement. PDMP PDMP Reviewed: Not Reviewed Attestations 2 Medical Necessity Statement*: Stable for discharge from a medicine standpoint Coding Level of Care Code Acute Code for Chg Fwd Diagnoses Hypoxia R09.02 Reactive airway disease J45.909
== END 2024-10-19 12:26 | disposition home or self-care (01) ==
LOC: MEDSURG 17:17
PROVIDERS: Admitting Provider Student in an Organized Health Care Education/Training Program; PCP Nurse Practitioner Family; Visit Provider Student in an Organized Health Care Education/Training Program
PROC: (CPT 29805; principal; 2024-10-18 08:00)
PROC: 0RSG0ZZ Reposition Right Acromioclavicular Joint, Open Approach (ICD-10-PCS; CPT 29828; 2024-10-18 08:00)
PROC: (CPT 29826; 2024-10-18 08:00)
PROC: (CPT 29827; 2024-10-18 08:00)
PROC: (CPT 24310; 2024-10-18 08:00)
PROC: (CPT 29828; 2024-10-18 08:00)
DX: M19.011 Primary osteoarthritis, right shoulder (principal); M75.41 Impingement syndrome of right shoulder; M75.21 Bicipital tendinitis, right shoulder; S43.491A Other sprain of right shoulder joint, initial encounter; M75.101 Unspecified rotator cuff tear or rupture of right shoulder, not specified as traumatic; Z88.8 Allergy status to other drugs, medicaments and biological substances; M94.211 Chondromalacia, right shoulder; M75.51 Bursitis of right shoulder; I10 Essential (primary) hypertension; J95.89 Other postprocedural complications and disorders of respiratory system, not elsewhere classified; R09.02 Hypoxemia; R49.0 Dysphonia; J45.909 Unspecified asthma, uncomplicated; Z11.52 Encounter for screening for COVID-19; Z79.899 Other long term (current) drug therapy; X58.XXXA Exposure to other specified factors, initial encounter
CPT/HCPCS: 29828; 29827; 29826; 36415; 36600; 71045; 80053; 82803; 83880; 84484; 85025; 85378; 87486; 87581; 87633; 93005; 94640; 94760; 97110; 97161; C1713 ×2; G0378; J0131; J0171; J0690; J1100; J1885; J2405; J2704; J3010; J3490; J7030

== ENCOUNTER → 2024-10-30 15:08 | Outpatient (BNVA) | payer MEDICARE, BC, SELFPAY | PROVIDERS: PCP Nurse Practitioner Family; Visit Provider Student in an Organized Health Care Education/Training Program | DX: M25.512 Pain in left shoulder (principal); M75.42 Impingement syndrome of left shoulder; Z98.890 Other specified postprocedural states | CPT/HCPCS: 73030; 99214 ==

== ENCOUNTER → 2024-11-27 10:05 | Outpatient (BNVA) | payer MEDICARE, BC, SELFPAY | PROVIDERS: PCP Nurse Practitioner Family; Visit Provider Physician Assistant | DX: Z98.890 Other specified postprocedural states (principal) | CPT/HCPCS: 99024 ==

== ENCOUNTER → 2024-12-11 09:20 | Outpatient (BNVA) | payer MEDICARE, BC, SELFPAY | PROVIDERS: PCP Nurse Practitioner Family; Visit Provider Internal Medicine Cardiovascular Disease | DX: I49.9 Cardiac arrhythmia, unspecified (principal); I49.8 Other specified cardiac arrhythmias; I49.3 Ventricular premature depolarization; I47.20 Ventricular tachycardia, unspecified; I49.1 Atrial premature depolarization | CPT/HCPCS: 93246 ==

== ENCOUNTER → 2025-01-08 10:19 | Outpatient (BNVA) | payer MEDICARE, BC, SELFPAY | PROVIDERS: PCP Nurse Practitioner Family; Visit Provider Physician Assistant | DX: Z98.890 Other specified postprocedural states (principal) | CPT/HCPCS: 99213 ==

== ENCOUNTER 2025-07-29 14:25 | Outpatient (CLI) | payer MEDICARE, BC, SELFPAY ==
--- NOTE | 2025-07-29 14:31 | XR_ITS ---
WS: [id number] Exam: XR hip LT 2-3V wo/w pel* [id number] Date/Time of Exam: 07/29/2025 2:31 PM Reason For Exam: PAIN IN LEFT HIP DLP: No acute fracture. Mild degenerative change of the joint compartment. Normal soft tissues. XR/XR hip LT 2-3V wo/w pel* [id number] IMPRESSION: 1. Mild DJD. No fracture.
== END 2025-07-29 14:26 | disposition home or self-care (01) ==
LOC: RAD 14:26
PROVIDERS: PCP Nurse Practitioner Family; Visit Provider Nurse Practitioner Family
DX: M25.552 Pain in left hip (principal); M16.12 Unilateral primary osteoarthritis, left hip
CPT/HCPCS: 73502